=== PATIENT | male | born 1980 | race Two or more races ===

== ENCOUNTER → 2017-07-09 | Outpatient (CLI) | payer OTHER | END | disposition home or self-care (01) | LOC: CFH 08:59 | PROVIDERS: ATTEND Physician Assistant | DX: R13.19 Other dysphagia (principal) | CPT/HCPCS: 74220 ==

== ENCOUNTER 2018-05-07 08:39 | Inpatient (IN) | payer OTHER ==
[~2018-05-07] VITALS: Ht 170.2 cm; Wt 70.2 kg
[~2018-05-07 08:39] MED LIST: BUPIVACAINE/PF 0.25% ONE; EPINEPHRINE 1 MG/ML, 1ML ONE
[2018-05-07] MEDS ORDERED: LACTATED RINGERS 1,000 ML IV SCH (09:15)
[2018-05-07 09:18] VITALS: BP 117/70
[2018-05-07] MEDS ORDERED: ACET325T14 PO (09:23)
[2018-05-07] MEDS ORDERED: SCOPOLAMINE PATCH, 1.5MG PATCH.TD72 TD ONE (09:30)
[2018-05-07] MEDS ORDERED: FENTANYL PF 250 MCG/5ML ONE (10:10)
[2018-05-07] MEDS ORDERED: MIDAZOLAM 1 MG/ML, 2ML ONE (10:10)
[2018-05-07] MEDS ORDERED: LABETALOL 5MG/ML, 20ML IV PRN (11:30)
[2018-05-07] MEDS ORDERED: PROMETHAZINE 25 MG/ML, 1ML IV PRN (11:30)
[2018-05-07] MEDS ORDERED: EPHEDRINE 50 MG/ML, 1ML IM PRN (11:30)
[2018-05-07] MEDS ORDERED: MORPHINE SULFATE 4 MG/ML, 1ML IVPush PRN (11:30)
[2018-05-07] MEDS ORDERED: OXYcodone 5 MG/5 ML ORAL.SOL UDC PO PRN (11:30)
[2018-05-07] MEDS ORDERED: DIAZEPAM 5 MG/ML, 2ML IVPush PRN (11:30)
[2018-05-07] MEDS ORDERED: MIDAZOLAM 1 MG/ML, 2ML IV PRN (11:30)
[2018-05-07] MEDS ORDERED: ALBUTEROL/IPRATROPIUM 2.5MG/0.5MG, 3 ML NPPB PRN (11:30)
[2018-05-07] MEDS ORDERED: DIPHENHYDRAMINE 50 MG/ML, 1ML IVPush PRN (11:30)
[2018-05-07] MEDS ORDERED: PROMETHAZINE 25 MG/ML, 1ML IM PRN (11:30)
[2018-05-07] MEDS ORDERED: LORazepam 2 MG/ML, 1ML IVPush PRN (11:30)
[2018-05-07] MEDS ORDERED: HALOPERIDOL 5 MG/ML IV PRN (11:30)
[2018-05-07] MEDS ORDERED: hydrALAzine 20 MG/ML, 1ML IV PRN (11:30)
[2018-05-07] MEDS ORDERED: MEPERIDINE/PF 25MG/0.5ML IVPush PRN (11:30)
[2018-05-07] MEDS ORDERED: METOCLOPRAMIDE 5 MG/ML, 2ML IV PRN (11:30)
[2018-05-07] MEDS ORDERED: DEXAMETHASONE 4 MG/ML, 1ML ONE (12:26)
[2018-05-07] MEDS ORDERED: LIDOCAINE GEL 2%, 5ML ONE (12:26)
[2018-05-07] MEDS ORDERED: ONDANSETRON 2MG/ML, 2ML ONE (12:26)
[2018-05-07] MEDS ORDERED: ROCURONIUM 10MG/ML,5ML ONE (12:26)
[2018-05-07] MEDS ORDERED: NEOSTIGMINE 1 MG/ML, 10ML ONE (12:26)
[2018-05-07] MEDS ORDERED: GLYCOPYRROLATE 0.2MG/1ML, 5ML ONE (12:26)
[2018-05-07] MEDS ORDERED: SUCCINYLCHOLINE 20 MG/ML, 10ML ONE (12:26)
[2018-05-07] MEDS ORDERED: PROPOFOL 10 MG/ML, 20ML ONE (12:26)
[2018-05-07] MEDS ORDERED: CEFAZOLIN 1,000 MG ONE (12:26)
[2018-05-07] MEDS ORDERED: FENTANYL PF 100 MCG/2ML ONE (12:56)
[2018-05-07] MEDS: FENTANYL PF 100 MCG/2ML IV PRN ×2 (12:58→13:03)
[2018-05-07] MEDS ORDERED: HYDROmorphone 2 MG/ML, 1ML ONE (13:13)
[2018-05-07] MEDS: HYDROmorphone 1 MG/ML, 1ML IV PRN ×2 (13:15→13:33)
[2018-05-07] MEDS ORDERED: KETOROLAC 30 MG/1 ML IV PRN (14:30)
[2018-05-07] MEDS: POTASSIUM CHLORIDE 20 MEQ in D5%-0.45% NACL 1,000 ML IV SCH (15:41)
[2018-05-07 19:26] VITALS: BP 104/61
[2018-05-07] MEDS: CEFOTETAN PMX 2GM/50ML 50 ML IVPB SCH (23:17)
[2018-05-07 23:36] VITALS: BP 118/63
[2018-05-08 03:26] VITALS: BP 110/62
[2018-05-08 07:09] VITALS: BP 104/66
[2018-05-08 07:52] LABS: CREATININE 0.88 mg/dL (0.7-1.3)
[2018-05-08] MEDS: ENOXAPARIN 40 MG/0.4 ML SQ SCH (08:11)
[2018-05-08] MEDS: POTASSIUM CHLORIDE 20 MEQ in D5%-0.45% NACL 1,000 ML IV SCH ×2 (09:25→23:58)
[2018-05-08] MEDS: CEFOTETAN PMX 2GM/50ML 50 ML IVPB SCH (10:57)
[2018-05-08 18:21] VITALS: BP 106/65
[2018-05-08 19:11] VITALS: BP 100/61
[2018-05-09 01:11] VITALS: BP 101/57
[2018-05-09 07:32] VITALS: BP 93/60
[2018-05-09] MEDS: ENOXAPARIN 40 MG/0.4 ML SQ SCH (08:35)
[2018-05-09] MEDS ORDERED: IBUPROFEN 100 MG/5 ML UDC PO PRN (10:00)
[2018-05-09] MEDS ORDERED: ACETAMINOPHEN 650 MG/20.3 ML UDC PO PRN (10:00)
[2018-05-09] MEDS: POTASSIUM CHLORIDE 20 MEQ in D5%-0.45% NACL 1,000 ML IV SCH (10:26)
[2018-05-09 14:47] VITALS: BP 99/64
[2018-05-09] MEDS ORDERED: ACET650S21 PO (15:31)
[2018-05-09] MEDS ORDERED: IBUP100O24 PO (15:33)
[2018-05-09] MEDS ORDERED: OXYC5SOL8 PO (15:34)
== END 2018-05-09 16:03 | disposition home or self-care (01) | DRG 328 ==
LOC: ORIP 08:39 → 4NOR 14:22 → DCLOUNGE 05-09 15:27
PROVIDERS: ADMIT Surgery; ATTEND Surgery
PROC: 0DV44ZZ Restriction of Esophagogastric Junction, Percutaneous Endoscopic Approach (ICD-10-PCS; 2018-05-07)
PROC: 0D844ZZ Division of Esophagogastric Junction, Percutaneous Endoscopic Approach (ICD-10-PCS; principal; 2018-05-07 10:30)
DX: K22.0 Achalasia of cardia (principal)
CPT/HCPCS: 36415; 82565; J0171; J0690; J1100; J1170; J1650; J2250; J2270; J2405; J2704; J2710; J3010; J3480; J3490; J0330; J7120; S0074